=== PATIENT | female | born 1965 | race Caucasian/White ===

== ENCOUNTER 2024-09-08 18:57 | Emergency (ER) | payer OTHER, SELFPAY ==
[2024-09-08 19:08] VITALS: BP 151/94; PULSE 73; RESP 18; TEMP 36.4; O2SAT 97; BMI 24.5
--- NOTE | 2024-09-08 19:09 | ECG_ITS ---
APPROVED REPORT Exam: Resting ECG HR:64 bpm ECG Measurements Heart Rate 64 AXES LA 161 P 63 QRSd 164 QRS 49 QT 428 T -31 QTc 437 Conclusion ELECTRONIC VENTRICULAR PACEMAKER ABNORMAL RHYTHM ECG UNCONFIRMED REPORT Electronically signed by : EDSON GERMAIN, 09/09/2024 06:31:54
--- NOTE | 2024-09-08 19:15 | XR_ITS ---
PROCEDURE INFORMATION: Exam: XR Chest Exam date and time: 09/08/2024 7:50 PM Age: 59 years old Clinical indication: Injury or trauma; Fall; Blunt trauma (contusions or hematomas) TECHNIQUE: Imaging protocol: Radiologic exam of the chest. Views: 1 view. COMPARISON: CT CERVICAL SPINE WO CON 09/08/2024 7:49 PM FINDINGS: Tubes, catheters and devices: Dual lead AICD. Lungs: No acute infiltrates.. Pleural spaces: There is no evidence for pneumothorax. Heart/Mediastinum: The heart size is within normal limits. Bones/joints: Unremarkable. IMPRESSION: 1. Dual lead AICD. 2. No acute infiltrates.. 3. There is no evidence for pneumothorax.
--- NOTE | 2024-09-08 19:15 | CT_ITS ---
PROCEDURE INFORMATION: Exam: CT Head Without Contrast Exam date and time: 09/08/2024 7:44 PM Age: 59 years old Clinical indication: Injury or trauma; Fall; Blunt trauma (contusions or hematomas); Additional info: Fall, head trauma TECHNIQUE: Imaging protocol: Computed tomography of the head without contrast. Radiation optimization: All CT scans at this facility use at least one of these dose optimization techniques: automated exposure control; mA and/or kV adjustment per patient size (includes targeted exams where dose is matched to clinical indication); or iterative reconstruction. COMPARISON: CT HEAD/BRAIN WO CON 09/08/2024 7:44 PM FINDINGS: Brain: Normal. No hemorrhage. Unremarkable white matter. No mass effect. Cerebral ventricles: No ventriculomegaly. Paranasal sinuses: Visualized sinuses are unremarkable. No fluid levels. Mastoid air cells: Visualized mastoid air cells are well aerated. Bones: Unremarkable. No acute fracture. Soft tissues: Unremarkable. IMPRESSION: No acute intracranial abnormality.
--- NOTE | 2024-09-08 19:15 | XR_ITS ---
PROCEDURE INFORMATION: Exam: XR Pelvis Exam date and time: 09/08/2024 7:50 PM Age: 59 years old Clinical indication: Injury or trauma; Fall; Blunt trauma (contusions or hematomas); Bilateral; Pelvic region TECHNIQUE: Imaging protocol: Radiologic exam of the pelvis. Views: 1 or 2 view. COMPARISON: No relevant prior studies available. FINDINGS: Bones/joints: Postop changes right hip arthroplasty partially visualized. No acute fracture. Soft tissues: Unremarkable. IMPRESSION: No evidence for acute fracture.
--- NOTE | 2024-09-08 19:15 | CT_ITS ---
PROCEDURE INFORMATION: Exam: CT Cervical Spine Without Contrast Exam date and time: 09/08/2024 7:49 PM Age: 59 years old Clinical indication: Injury or trauma; Fall; Blunt trauma; Additional info: *fall TECHNIQUE: Imaging protocol: Computed tomography of the cervical spine without contrast. Radiation optimization: All CT scans at this facility use at least one of these dose optimization techniques: automated exposure control; mA and/or kV adjustment per patient size (includes targeted exams where dose is matched to clinical indication); or iterative reconstruction. COMPARISON: CT FACIAL BONES WO CON 09/08/2024 7:47 PM FINDINGS: Bones: No evident fracture. Degenerative changes of the C-spine most pronounced at C4-C5 through C6-C7. Alignment and vertebral body heights are intact. Spinal cord: A large central disc protrusion noted at the C3-C4 level with associated extrusion superior to this level and slightly inferior to this level and severe narrowing of the central canal that measures 4 mm with associated presumed cord compression. Developmental incomplete closure of the posterior arch of C1. Lungs: Lung apices are normal. Soft tissues: Unremarkable. IMPRESSION: 1. A large central disc protrusion noted at the C3-C4 level with associated extrusion superior to this level and slightly inferior to this level and severe narrowing of the central canal that measures 4 mm with associated presumed cord compression. Further assessment with MRI scan of the C-spine may be indicated. 2. Degenerative changes. No acute fracture.
--- NOTE | 2024-09-08 19:19 | HMH.EDGENADL ---
Discharge Plan Disposition Patient Disposition: Left Against Medical Advice Condition: Good Referrals Follow up/Referrals: Abraham Bailey MD [Physician, Ear, Nose, Throat] - See instructions Roselyn Melendez [Primary Care Provider, Medical] - See instructions Armani Dowell MD [Referring, Otolaryngology (ENT)] - See instructions Activity Restrictions/Add. Instructions Additional Instructions/Restrictions: You will need an MRI of your cervical spine to evaluate the spinal cord. There are 2 options in order to receive an MRI, you can follow-up with your primary care provider and they can order an MRI or you can return to the emergency department. If you have any acute or worsening neurologic symptoms such as progression of weakness, worsening strength, decreased sensation or worsening ability to ambulate please return to the emergency department more acutely. For your facial fracture, you will need to see a facial surgeon in clinic. You should eat a soft diet for 1 week you can use Tylenol and ibuprofen as needed for symptom control. Return to the emergency department for any acute or worsening symptoms. Clinical Impressions Clinical Impression: Mandibular fracture, Cervical spinal cord compression Print Language Print Language: Spanish Discharge ED Provider: Debra Belcher General Adult HPI <RIA Wright - Last Filed: 09/08/24 22:19> General Chief complaint: Fall Stated complaint: AO 09/08/24 1800 laceration chin Time Seen by Provider: 09/08/24 19:03 Mode of Arrival: Wheelchair Source of Information: Patient and Spouse Description of Symptoms (Recalled from ER Triage Doc. by RN): pt reports she fell and hit her chin on the floor. denies LOC, but pt states she passed out. hx of [place] and stroke. speech is slurred @ baseline bruising above left eye and abrasion on r knee. on thinner History of Present Illness HPI narrative: 59-year-old female presents to the emergency department with a fall, and laceration on her chin, patient is somewhat of a poor historian, and is accompanied by her , patient is unsure of any LOC, describes what sound like a presyncopal versus syncopal episode where the patient was attempting to get out of a chair, and fell on her face , patient has prior history of TIA/CVA, with residual dysarthria/aphasia, and right-sided deficits, patient does admit to striking head on the left side, planes of right shoulder pain, right knee pain, from her fall, as well as right hip pain, patient [place] any fever chills chest pain shortness of breath nausea vomiting abdominal pain no urinary symptomatology, patient past medical history consistent with hypertension, implantable pacemaker/defibrillator, surgical fixation of the patient's pelvis/hip, hyperlipidemia, patient is on antiplatelet therapy with aspirin, otherwise patient is unsure of her other past medical history, initial triage vitals are unremarkable. Has a history of substance use/abuse. Onset (ago): hour(s) Related Data Allergies Allergy/AdvReac Type Severity Reaction Status Date / Time chocolate Allergy Hives Verified 09/08/24 19:16 diphenhydramine (From Allergy Hives Verified 09/08/24 19:16 Benadryl) latex Allergy Hives Verified 09/08/24 19:16 PFSH <RIA Wright - Last Filed: 09/08/24 22:19> [facility] Disclaimer: The information contained in this section may have been updated after the patient was seen, as this information can be updated by other users. Social History (Updated 09/08/24 @ 22:19 by RIA Wright) Smoking Status: Never smoker alcohol intake: never current occupational status: other Travel in the last 8 weeks?: None <RIA Wright - Last Filed: 09/08/24 22:19> ROS Obtained: Yes All systems reviewed & no additional complaints except as documented Physical Exam <RIA Wright - Last Filed: 09/08/24 22:19> General General appearance: alert and in no apparent distress Head Head exam: atraumatic and normocephalic Eye Eye exam: Present PERRL and EOMI ENT ENT exam: Present mucous membranes moist Neck Neck exam: Present normal inspection Chest Chest inspection: Present normal inspection and symmetric chest wall rise Respiratory Respiratory exam: Present normal lung sounds bilaterally; Absent respiratory distress Cardiovascular Cardiovascular exam: Present regular rate and normal rhythm Abdominal Exam Abdominal exam: Present soft; Absent tenderness, guarding, rebound or rigidity Extremities Exam Extremities exam: Present normal inspection, tenderness and other (Range of motion of the right shoulder with tenderness over the anterior shoulder joint, tenderness palpation over the right knee, with ecchymosis and bruising, otherwise neurovasc intact, patient moves extremities to command.); Absent full ROM Back Exam Back exam: Present normal inspection and full ROM; Absent tenderness Neurological Exam Neurological exam: Present alert, oriented X3 and other (Patient has some baseline dysarthria/aphasia previous TIA/CVAs, appears to be at baseline according to family at the bedside, with some very minor residual right sided weakness, 4-5 throughout, otherwise no other focal neurological deficits present) Psychiatric Psychiatric exam: Present normal affect Skin Skin exam: Present warm, dry and other (Small 1 cm laceration over the patient's chin, active bleeding, ecchymosis/bruising over the right knee,) Medical Decision Making <RIA Wright - Last Filed: 09/08/24 22:19> Medical Records Medical records reviewed: Yes I reviewed the patient's medical records. Screening: Per USPSTF and CDC recommendations, given the prevalence of disease in our region, it is our hospital?s policy to screen for HIV and viral Hepatitis for all patients aged 18 and over and those with ongoing risk factors. James Inquiry Pt receiving controlled substance: No James was queried for this patient: No Vital Signs: 09/08/24 19:08 09/09/24 00:25 Temperature 97.6 F 98.2 F Temperature Source Oral Oral Pulse Rate 69 Pulse Rate [Right] 73 Respiratory Rate 18 17 Blood Pressure 139/87 Blood Pressure [Right Arm] 151/94 H Blood Pressure Mean [Right Arm] 113 Blood Pressure Source Automatic Cuff Blood Pressure Position Sitting 02 Sat by Pulse Oximetry 97 Oxygen Delivery Method Room Air Room Air Lab Data Lab results reviewed: Yes I reviewed the patient's lab results. Lab Results 09/08/24 19:30: WBC 6.6, RBC 4.89, Hgb 13.9, Hct 42.8, MCV 87.5, MCH 28.4, MCHC 32.5, RDW 13.8, Plt Count 217, MPV 11.0 H, Neut % (Auto) 56.3, Lymph % (Auto) 32.3, Ripley % (Auto) 8.9, Eos % (Auto) 1.8, Baso % (Auto) 0.5, Neut # (Auto) 3.7, Lymph # (Auto) 2.1, Ripley # (Auto) 0.6, Eos # (Auto) 0.1, Baso # (Auto) 0.0, Sodium 138, Potassium 3.9, Chloride 103, Carbon Dioxide 29, Anion Gap 9.9, BUN 20 H, Creatinine 0.60, Estimated Creat Clear 94, Estimated GFR 102, Est GFR ( Amer) 124, Glucose 101 H, Calcium 9.3, Magnesium 2.1, Total Bilirubin 0.9, AST 56 H, ALT 37, Alkaline Phosphatase 72, Troponin I < 0.01, NT-Pro-B Natriuret Pep 103, Total Protein 7.3, Albumin 4.3, Globulin 3.0, Albumin/Globulin Ratio 1.4 09/08/24 22:05: Troponin I < 0.01 09/08/24 19:30 09/08/24 19:30 Orders (Tests/Meds): ED MEDICATIONS Discontinued Medications Generic Name Dose Route Start Last Admin Trade Name Freq PRN Reason Stop Dose Admin Bacitracin 1 each 09/09/24 00:06 Bacitracin Oint 0.9gm Udp TP 09/09/24 00:07 ONCE ONE Lidocaine HCl 10 ml 09/08/24 19:56 09/08/24 20:11 Lidocaine 1% 5ml Pf Vial IJ 09/08/24 19:57 10 ml ONCE ONE Administration Tetanus/Reduced Diphtheria/Acell Pertussis 0.5 ml 09/08/24 19:55 09/08/24 20:12 Tet/Diphth/Pert-Adult 0.5ml Syringe IM 09/08/24 19:56 0.5 ml .ONCE ONE Administration ORDERS Category Date Time Status CT cervical spine wo con Stat Cat Scan 09/08/24 19:[address] facial bones wo con Stat Cat Scan 09/08/24 19:[address] head/brain wo con Stat Cat Scan 09/08/24 19:15 Completed Pelvis XR 1-2 views [XR pelvis 1-2V] Stat Exams 09/08/24 19:15 Completed XR chest portable Stat Exams 09/08/24 19:15 Completed XR knee RT 3V Stat Exams 09/08/24 19:25 Completed XR shoulder RT min 2V Stat Exams 09/08/24 19:25 Completed Complete Blood Count Auto Diff Stat Lab 09/08/24 19:30 Completed Comprehensive Metabolic Panel Stat Lab 09/08/24 19:30 Completed Magnesium Stat Lab 09/08/24 19:30 Completed NT Pro Brain Natriuretic Pep. Stat Lab 09/08/24 19:30 Completed Troponin I Q3H Lab 09/08/24 22:05 Completed Troponin I Stat Lab 09/08/24 19:30 Completed Medical Decision Narrative: 59-year-old female presents to the emergency department with a fall versus syncopal episode, differential diagnosis include but not limited to, traumatic SAH, acute SDH, postconcussive syndrome, facial bone fracture, superficial contusions, since, right shoulder sprain, shoulder fracture, knee sprain, fracture, laceration, cardiac arrhythmia, electrolyte disturbance among others. I discussed patient case with the attending physician Dr.Mack solorzano and examined the patient as well. Will obtain basic laboratory studies, magnesium level proBNP, troponin, EKG, CT cervical spine without contrast, CT facial bones without contrast, CT head without contrast, chest ray, right knee x-ray, pelvic x-ray, and right shoulder x-ray, will update patient's tetanus prophylaxis here in the emergency department as patient states has been greater than 5 years since last tetanus Reviewed the patient's EKG at 1919, electronic ventricular pacemaker is present, 64 bpm, NV interval within normals, QT interval within normal limits there is no STEMI. CBC unremarkable CMP is notable for minimal BUN elevation at 20, minimal AST elevation 56. Troponin is within normal limits at less than 0.01, proBNP is within normal limits\ I along with my physician assistant teacher student, performed laceration repair at the bedside, wound was copiously irrigated, was cleaned with normal saline and Hibiclens solution, approximately 8 mL of 1% lidocaine, and 2 mL of 1% lidocaine with epi, was applied using local analgesia technique, patient tolerated well, utilizing 5-0 with a total of 7 nylon sutures patient's wound was closed, wound margins/edges were revitalize, patient tolerated procedure well, no apparent complications, hemostasis achieved. I reviewed the patient's right knee x-ray along with corresponding radiologic report, no evidence of acute fracture, partially visualized lateral plate and screws within the mid and distal femur I reviewed the patient's right shoulder x-ray along the corresponding radiologic report, no acute findings. I reviewed the patient's chest x-ray along the corresponding radiologic report, dual-lead AICD no acute infiltrates there is no evidence of pneumothorax. 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 Reviewed the patient's CT head without contrast along the corresponding radiologic report, no acute intracranial abnormality. Reviewed the patient's CT cervical spine without contrast on the corresponding radiologic report, there is a large protrusion noted at C3-C4 level with associated extrusion superior to the level and slightly inferior to this level and severe narrowing of the central canal that measures 4 mm with associated presumed cord compression, further assessment with MRI scan of the C-spine may be indicated, degenerative changes no acute fracture. I discussed over the phone with the patient's daughter Anastasia, at approximately 9:55 PM, plan will be for potential [facility] consultation for facial fracture and signs concerning for spinal cord compression based on CT cervical spine results. After discussing with the daughter, via phone, also obtained additional medical history, patient had prior PFO, that was closed, this was the cause of the patient's cryptogenic strokes, patient not on anticoagulant therapies, only takes a daily aspirin, other past medical history consistent with CHF. Also of note, daughter over the phone states the patient has been having blackout episodes , and a balance/gait disturbance that have been going on for the last several months. Slated to have a neurology consultation in the upcoming months. I discussed this patient's case with Dr. Belcher at shift change, she will be assuming the patient's care/workup, disposition is pending in emergency [place] consultation versus transfer based on the patient's imaging studies as stated above. <Debra Belcher, DO - Last Filed: 09/10/24 17:40> Vital Signs: 09/08/24 19:08 09/09/24 00:25 Temperature 97.6 F 98.2 F Temperature Source Oral Oral Pulse Rate 69 Pulse Rate [Right] 73 Respiratory Rate 18 17 Blood Pressure 139/87 Blood Pressure [Right Arm] 151/94 H Blood Pressure Mean [Right Arm] 113 Blood Pressure Source Automatic Cuff Blood Pressure Position Sitting 02 Sat by Pulse Oximetry 97 Oxygen Delivery Method Room Air Room Air Lab Data Lab Results 09/08/24 19:30: WBC 6.6, RBC 4.89, Hgb 13.9, Hct 42.8, MCV 87.5, MCH 28.4, MCHC 32.5, RDW 13.8, Plt Count 217, MPV 11.0 H, Neut % (Auto) 56.3, Lymph % (Auto) 32.3, Ripley % (Auto) 8.9, Eos % (Auto) 1.8, Baso % (Auto) 0.5, Neut # (Auto) 3.7, Lymph # (Auto) 2.1, Ripley # (Auto) 0.6, Eos # (Auto) 0.1, Baso # (Auto) 0.0, Sodium 138, Potassium 3.9, Chloride 103, Carbon Dioxide 29, Anion Gap 9.9, BUN 20 H, Creatinine 0.60, Estimated Creat Clear 94, Estimated GFR 102, Est GFR ( Amer) 124, Glucose 101 H, Calcium 9.3, Magnesium 2.1, Total Bilirubin 0.9, AST 56 H, ALT 37, Alkaline Phosphatase 72, Troponin I < 0.01, NT-Pro-B Natriuret Pep 103, Total Protein 7.3, Albumin 4.3, Globulin 3.0, Albumin/Globulin Ratio 1.4 09/08/24 22:05: Troponin I < 0.01 Orders (Tests/Meds): ED MEDICATIONS Discontinued Medications Generic Name Dose Route Start Last Admin Trade Name Freq PRN Reason Stop Dose Admin Bacitracin 1 each 09/09/24 00:06 Bacitracin Oint 0.9gm Udp TP 09/09/24 00:07 ONCE ONE Lidocaine HCl 10 ml 09/08/24 19:56 09/08/24 20:11 Lidocaine 1% 5ml Pf Vial IJ 09/08/24 19:57 10 ml ONCE ONE Administration Tetanus/Reduced Diphtheria/Acell Pertussis 0.5 ml 09/08/24 19:55 09/08/24 20:12 Tet/Diphth/Pert-Adult 0.5ml Syringe IM 09/08/24 19:56 0.5 ml .ONCE ONE Administration ORDERS Category Date Time Status CT cervical spine wo con Stat Cat Scan 09/08/24 19:[address] facial bones wo con Stat Cat Scan 09/08/24 19:[address] head/brain wo con Stat Cat Scan 09/08/24 19:15 Completed Pelvis XR 1-2 views [XR pelvis 1-2V] Stat Exams 09/08/24 19:15 Completed XR chest portable Stat Exams 09/08/24 19:15 Completed XR knee RT 3V Stat Exams 09/08/24 19:25 Completed XR shoulder RT min 2V Stat Exams 09/08/24 19:25 Completed Complete Blood Count Auto Diff Stat Lab 09/08/24 19:30 Completed Comprehensive Metabolic Panel Stat Lab 09/08/24 19:30 Completed Magnesium Stat Lab 09/08/24 19:30 Completed NT Pro Brain Natriuretic Pep. Stat Lab 09/08/24 19:30 Completed Troponin I Q3H Lab 09/08/24 22:05 Completed Troponin I Stat Lab 09/08/24 19:30 Completed Medical Decision Narrative: 59-year-old female presents to the emergency department with a fall versus syncopal episode, differential diagnosis include but not limited to, traumatic SAH, acute SDH, postconcussive syndrome, facial bone fracture, superficial contusions, since, right shoulder sprain, shoulder fracture, knee sprain, fracture, laceration, cardiac arrhythmia, electrolyte disturbance among others. I discussed patient case with the attending physician Dr.Mack solorzano and examined the patient as well. Will obtain basic laboratory studies, magnesium level proBNP, troponin, EKG, CT cervical spine without contrast, CT facial bones without contrast, CT head without contrast, chest ray, right knee x-ray, pelvic x-ray, and right shoulder x-ray, will update patient's tetanus prophylaxis here in the emergency department as patient states has been greater than 5 years since last tetanus Reviewed the patient's EKG at 1919, electronic ventricular pacemaker is present, 64 bpm, NV interval within normals, QT interval within normal limits there is no STEMI. CBC unremarkable CMP is notable for minimal BUN elevation at 20, minimal AST elevation 56. Troponin is within normal limits at less than 0.01, proBNP is within normal limits\ I along with my physician assistant teacher student, performed laceration repair at the bedside, wound was copiously irrigated, was cleaned with normal saline and Hibiclens solution, approximately 8 mL of 1% lidocaine, and 2 mL of 1% lidocaine with epi, was applied using local analgesia technique, patient tolerated well, utilizing 5-0 with a total of 7 nylon sutures patient's wound was closed, wound margins/edges were revitalize, patient tolerated procedure well, no apparent complications, hemostasis achieved. I reviewed the patient's right knee x-ray along with corresponding radiologic report, no evidence of acute fracture, partially visualized lateral plate and screws within the mid and distal femur I reviewed the patient's right shoulder x-ray along the corresponding radiologic report, no acute findings. I reviewed the patient's chest x-ray along the corresponding radiologic report, dual-lead AICD no acute infiltrates there is no evidence of pneumothorax. 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 Reviewed the patient's CT head without contrast along the corresponding radiologic report, no acute intracranial abnormality. Reviewed the patient's CT cervical spine without contrast on the corresponding radiologic report, there is a large protrusion noted at C3-C4 level with associated extrusion superior to the level and slightly inferior to this level and severe narrowing of the central canal that measures 4 mm with associated presumed cord compression, further assessment with MRI scan of the C-spine may be indicated, degenerative changes no acute fracture. I discussed over the phone with the patient's daughter Anastasia, at approximately 9:55 PM, plan will be for potential [facility] consultation for facial fracture and signs concerning for spinal cord compression based on CT cervical spine results. After discussing with the daughter, via phone, also obtained additional medical history, patient had prior PFO, that was closed, this was the cause of the patient's cryptogenic strokes, patient not on anticoagulant therapies, only takes a daily aspirin, other past medical history consistent with CHF. Also of note, daughter over the phone states the patient has been having blackout episodes , and a balance/gait disturbance that have been going on for the last several months. Slated to have a neurology consultation in the upcoming months. I discussed this patient's case with Dr. Belcher at [facility], she will be assuming the patient's care/workup, disposition is pending in emergency [place] consultation versus transfer based on the patient's imaging studies as stated above. Debra Belcher, DO I took over the care of this patient initially pending consult and evaluation by [facility]. After discussion with [facility], they did accept patient for transfer given that we are unable to obtain MRIs over the weekend. However after further discussion with the patient, she did not wish to transfer to [facility] at this time for MRIs. I did discuss with the patient my concern with given her compression noted on her CT scan and patient understood the risks of not obtaining MRI at this time. I discussed with the patient other options including outpatient MRI versus returning to the emergency department to obtain MRIs during the week today. I had a lengthy discussion with the patient that if she were to have any worsening neurologic symptoms including worsening numbness, weakness, difficulties urinating or bowel incontinence that she needed to return to the emergency department immediately. In regards to the patient's mandibular fracture, [facility] was consulted and they recommended outpatient management, patient was instructed to eat a soft diet over the next week. Patient was otherwise discharged AGAINST MEDICAL ADVICE at this time. Procedures <RIA Wright - Last Filed: 09/08/24 22:19> Laceration Laceration 1: Site: face Size (cm): 2 Description: irregular Depth: simple, single layer Local Anesthetic: lidocaine 1% and with epi Amount of anesthesia used (mL): 10 Pre-repair: irrigated extensively and deep structures intact Skin layer closed with: nylon Size (cm): 5-0 Number of sutures: 7 Technique: simple, interrupted Critical Care <RIA Wright - Last Filed: 09/08/24 22:19> Critical Care Time Critical Care Time: No
--- NOTE | 2024-09-08 19:24 | PC.NURSE ---
Pt chin lac cleansed, wet gauze applied and curlex for pressure, Dr Belcher at bedside.
--- NOTE | 2024-09-08 19:25 | XR_ITS ---
PROCEDURE INFORMATION: Exam: XR Right Knee Exam date and time: 09/08/2024 7:50 PM Age: 59 years old Clinical indication: Injury or trauma; Fall; Blunt trauma; Knee; Right; Additional info: Fall, right knee pain TECHNIQUE: Imaging protocol: Radiologic exam of the right knee. Views: 3 views. COMPARISON: No relevant prior studies available. FINDINGS: Bones/joints: No acute fracture. Partially visualized lateral plate and screws within the mid and distal femur. Soft tissues: Normal. IMPRESSION: 1. No evidence for acute fracture. 2. Partially visualized lateral plate and screws within the mid and distal femur.
--- NOTE | 2024-09-08 19:25 | CT_ITS ---
PROCEDURE INFORMATION: Exam: CT Maxillofacial Without Contrast Exam date and time: 09/08/2024 7:47 PM Age: 59 years old Clinical indication: Injury or trauma; Blunt trauma (contusions or hematomas); Other: Fall, facial trauma TECHNIQUE: Imaging protocol: Computed tomography of the face without contrast. Radiation optimization: All CT scans at this facility use at least one of these dose optimization techniques: automated exposure control; mA and/or kV adjustment per patient size (includes targeted exams where dose is matched to clinical indication); or iterative reconstruction. COMPARISON: CT HEAD/BRAIN WO CON 09/08/2024 7:44 PM FINDINGS: Paranasal sinuses: No air-fluid levels. Orbital cavities: Orbits are normal. Globes are unremarkable. Salivary glands: Multilobulated fat density lesion within the right parotid gland measuring 4.0 x 2.0 x 2.0 cm. Mild thin internal septations are noted. Bones: Comminuted fractures through the left mandibular condyle with intra-articular extension to the TMJ with mild lateral displacement of the proximal lateral fracture component and minimal medial angulation of the proximal medial fracture component. No other mandibular fracture seen. No other facial fracture seen. Soft tissues: Unremarkable. IMPRESSION: 1. Comminuted fracture of the left mandibular condyle with intra-articular extension. 2. 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 Advise clinical assessment and follow-up.
--- NOTE | 2024-09-08 19:25 | XR_ITS ---
PROCEDURE INFORMATION: Exam: XR Right Shoulder Exam date and time: 09/08/2024 7:50 PM Age: 59 years old Clinical indication: Injury or trauma; Fall; Blunt trauma (contusions or hematomas); Shoulder; Right; Additional info: Fall with right shoulder pain TECHNIQUE: Imaging protocol: Radiologic exam of the right shoulder. Views: 2 or more views. COMPARISON: CR XR SHOULDER RT MIN 2V 09/08/2024 7:50 PM FINDINGS: Bones/joints: Normal. Soft tissues: Normal. IMPRESSION: No acute findings.
--- OUTSIDE RECORDS SUMMARY | 2024-09-08 19:33 | XMS_ITS | Encounter Summary ---
Author Organization [place] [address] Care Team Providers Care Tactical Air Control Party Name Role Phone Berny Daley MD Unavailable [phone] Kylie Kelly Unavailable Sujit Vazquez MD Unavailable [phone] Payton Flynn RN Unavailable Unavailabl Roselyn Colorado MD Primary Care Provider [phone] Margy Hwang RN Unavailable Unavail able Encounter Details Date Type Department Care Team (Late st Contact Info) Description 01/10/2014 Orders Only [facility] [address] [place] [address] Berny Daley MD [address] [place] [address] Social History Tobacco Use Types Packs/Day Years Used Date Smoking Tobacco: Former Cigarettes Smokeless Tobacco: Never Comments:quit 1993 Alcohol Use Standard Drinks/Week Comments No 0 (1 standard drink = 0.6 oz pur e alcohol) Comments No Sex and Gender Information Value Date Recorded Sex Assigned at Not on file Legal Sex Female 12:36 AM EDT Gender Identity Not on file Sexual Orientation Not on file documented as of this encounter Functional Status * Cognitive and Functional Status Question Answer Date of Assessment Author Is the person deaf or does he/she have serious difficulty hearing? No 01/11/2014 11:45 AM Shantel Montgomery RN Is the person blind or does he/she have serious difficulty seeing even when wearing glasses? No 01/11/2014 11:45 AM Shantel Montgomery RN Does this person have seriou s difficulty walking or climbing stairs? No 01/11/2014 11:45 AM Shantel Montgomery RN Does this person have difficulty dressing or bathing? Yes 01/11/2014 11:45 AM Shantel Montgomery RN documented as of this encounter Mental Status * Cognitive and Functional Status Question Answer Entry Date Author Because of a physical, menta l or emotional condition, does this person have difficulty doing errands alone such as visiting a doctor's office or shopping? No 01/11/2014 11:45 AM Shantel Montgomery RN Because of a physical, menta l or emotional condition, does this person have serious difficulty concentrating, remembering or making decisions? No 01/11/2014 11:45 AM Shantel Montgomery RN documented in this encounter Progress Notes * Cammie Sommer APRN - 01/11/2014 3:21 PM [email or web address] Note: Results normal documented in this encounter Plan of Treatment Upcoming Encounters Date Type Department Care Team (Late st Contact Info) Description 10/11/2024 10:50 AM EDT Office Visit [facility] [address] [address] Berny Daley MD [address] [place] [address] 10/11/2024 11:00 AM EDT Office Visit [facility] [address] [address] documented as of this encounter Procedures Procedure Name Priority Date/Time Associated Diagnosis Comments PACEART REPORT Routine 01/10/2014 2:52 PM EST documented in this encounter Results * PACEART REPORT (01/10/2014 2:52 PM EST) 01/10/2014 2:52 PM EST Berny Daley MD [facility] CARDIAC CATH ORDERABLE S Final Result [facility] [address] [place] [address] documented in this encounter Visit Diagnoses Not on filedocumented in this encounter Additional Health Concerns Infection Onset Date Last Indicated Resolved Time R/O COVID-19 03/25/2021 03/25/2021 03/25/2021 7:15 PM EST documented as of this encounter Care Teams Tactical Air Control Party Relationship Specialty Start Date End Date Roselyn Melendez MD [address] [place] [phone] PCP - General Family Medicine 07/09/20 Berny Daley MD [address] [place] [address] Internal Medicine-Cardiovascular Disease 02/04/14 Kylie Kelly [address] [place] [address] Health Advocate Registered Nurse 03/08/14 07/29/14 Sujit Vazquez MD [address] [facility] [address] Consulting Physician Internal Medicine - Clinical Cardiac Electrophysiology 07/23/16 Payton Flynn, RN Electric Train Driver Registered Nurse 11/28/18 11/28/18 Margy Hwang RN Electric Train Driver Registered Nurse 04/10/21 04/10/21 documented as of this encounter
--- OUTSIDE RECORDS SUMMARY | 2024-09-08 19:33 | XMS_ITS | Encounter Summary ---
Author Organization [place] [address] Care Team Providers Care Flyer Builder Name Role Phone Berny Daley MD Unavailable [phone] Sujit Vazquez MD Unavailable Payton Flynn RN Unavailable Unavailabl e Roselyn Melendez MD Primary Care Provider [phone] Margy Hwang RN Unavailable Unavail able Encounter Details Date Type Department Care Team (Late st Contact Info) Description 07/08/2016 Orders Only [facility] [address] [facility] [address] [place] [address] Sujit Vazquez MD [address] [place] [address] Social History Tobacco Use Types Packs/Day Years Used Date Smoking Tobacco: Former Cigarettes 1.5 14 0 07/30/1979 - 07/29/1993 Smokeless Tobacco: Never Comments:quit 1993 Alcohol Use Standard Drinks/Week Comments No 0 (1 standard drink = 0.6 oz pur e alcohol) Comments No Sex and Gender Information Value Date Recorded Sex Assigned at Not on file Legal Sex Female 12:36 AM EDT Gender Identity Not on file Sexual Orientation Not on file documented as of this encounter Functional Status * Is the person deaf or does he/she have serious difficulty hearing? Answer Date of Assessment Author No 01/11/2014 11:45 AM Yonny Montgomery RN * Is the person blind or does he/she have serious difficulty seeing even when wearing glasses? Answer Date of Assessment Author No 01/11/2014 11:45 AM Yonny Montgomery RN * Does this person have serious difficulty walking or climbing stairs? Answer Date of Assessment Author No 01/11/2014 11:45 AM Yonny Montgomery RN * Does this person have difficulty dressing or bathing? Answer Date of Assessment Author Yes 01/11/2014 11:45 AM Yonny Montgomery RN * Because of a physical, mental or emotional condition, does this person have difficulty doing errands alone such as visiting a doctor's office or shopping? Answer Date of Assessment Author No 01/11/2014 11:45 AM Yonny Montgomery RN documented as of this encounter Mental Status * Because of a physical, mental or emotional condition, does this person have serious difficulty concentrating, remembering or making decisions? Answer Entry Date Author No 01/11/2014 11:45 AM Yonny Montgomery RN documented in this encounter Plan of Treatment Upcoming Encounters Date Type Department Care Team (Late st Contact Info) Description 10/11/2024 10:50 AM EDT [place] [address] Berny Daley MD [address] [place] [address] 10/11/2024 11:00 AM EDT Office Visit [facility] [address] [id number] documented as of this encounter Goals Goal Patient Goal Type Associated Problems Recent Progress Patient-Stated? Author Blood Pressure < 140/90 Blood Pressure 130/78(2024 10:44 AM EST) Jennifer Fofana RMA Maintain a healthy diet, exercise regularly and maintain an ideal body weight General No Jennifer Vargas RMA Stay Tobacco Free Lifestyle No Jennifer Vargas RMA documented as of this encounter Procedures Procedure Name Priority Date/Time Associated Diagnosis Comments PACEART REPORT Routine 07/08/2016 5:23 PM EDT documented in this encounter Results * PACEART REPORT (07/08/2016 5:23 PM EDT) 07/08/2016 5:23 PM EDT Narrative [facility] - 07/08/2016 7:36 PM EDT implant report us Sujit Vazquez MD [facility] CARDI[facility] CATH ORDERAB LES Final Result [facility] [address] [place] [address] documented in this encounter Visit Diagnoses Not on filedocumented in this encounter Additional Health Concerns Infection Onset Date Last Indicated Resolved Time R/O COVID-19 03/25/2021 03/25/2021 03/25/2021 7:15 PM EST documented as of this encounter Care Teams Flyer Builder Relationship Specialty Start Date End Date Roselyn Melendez MD [address] [place] [phone] PCP - General Family Medicine 07/09/20 Berny Daley MD [address] [place] [address] Internal Medicine-Cardiovascular Disease 02/04/14 Sujit Vazquez MD [address] [place] [address] Consulting Physician Internal Medicine - Clinical Cardiac Electrophysiology 07/23/16 Payton Flynn, RN Newspaper Journalist Registered Nurse 11/28/18 11/28/18 Margy Hwang RN Newspaper Journalist Registered Nurse 04/10/21 04/10/21 documented as of this encounter
--- OUTSIDE RECORDS SUMMARY | 2024-09-08 19:33 | XMS_ITS | Encounter Summary ---
Author Organization [place] [address] Care Team Providers Care Business Continuity Analyst Name Role Phone Berny Daley MD Unavailable [phone] yKlie Kelly Unavailable Sujit Vazquez MD Unavailable [phone] Payton Flynn RN Unavailable Unavailabl Roselyn [place] MD Primary Care Provider [phone] Margy Hwang RN Unavailable Unavail able Encounter Details Date Type Department Care Team (Late st Contact Info) Description 07/30/2013 Orders Only [facility] [address] [place] [address] Berny Daley MD [address] [place] [address] Social History Tobacco Use Types Packs/Day Years Used Date Smoking Tobacco: Former Smokeless Tobacco: Never Alcohol Use Standard Drinks/Week Comments No 0 (1 standard drink = 0.6 oz pur e alcohol) Comments No Sex and Gender Information Value Date Recorded Sex Assigned at Not on file Legal Sex Female 12:36 AM EDT Gender Identity Not on file Sexual Orientation Not on file documented as of this encounter Plan of Treatment Upcoming Encounters Date Type Department Care Team (Late st Contact Info) Description 10/11/2024 10:50 AM EDT Office Visit [facility] [address] [address] Berny Daley MD [address] [place] [address] 10/11/2024 11:00 AM EDT Office Visit [facility] [address] [address] documented as of this encounter Procedures Procedure Name Priority Date/Time Associated Diagnosis Comments FUND CONTROLLER PROCEDURE LOG Routine 07/30/2013 12:00 AM EDT documented in this encounter Results * FUND CONTROLLER PROCEDURE LOG (07/30/2013 12:00 AM EDT) us Berny Daley MD [facility] CARDIAC CATH ORDERABLE S Final Result [facility] [address] [place] [address] documented in this encounter Visit Diagnoses Not on filedocumented in this encounter Additional Health Concerns Infection Onset Date Last Indicated Resolved Time R/O COVID-19 03/25/2021 03/25/2021 03/25/2021 7:15 PM EST documented as of this encounter Care Teams Business Continuity Analyst Relationship Specialty Start Date End Date Roselyn Melendez MD [address] [place] [phone] PCP - General Family Medicine 07/09/20 Berny Daley MD [address] [place] [address] Internal Medicine-Cardiovascular Disease 02/04/14 Kylie Kelly [address] [place] [address] Health Advocate Registered Nurse 03/08/14 07/29/14 Sujit Vazquez MD [address] [place] [address] [place] [address] Consulting Physician Internal Medicine - Clinical Cardiac Electrophysiology 07/23/16 Payton Flynn, RN Extension Clerk Registered Nurse 11/28/18 11/28/18 Margy Hwang RN Extension Clerk Registered Nurse 04/10/21 04/10/21 documented as of this encounter
--- OUTSIDE RECORDS SUMMARY | 2024-09-08 19:33 | XMS_ITS | Encounter Summary ---
Author Organization [place] [address] Care Team Providers Care Relay Repairer Name Role Phone Berny Daley MD Unavailable [phone] Sujit Vazquez MD Unavailable [phone] Roselyn Melendez MD Primary Care Provider [phone] Reason for Visit * Reason Comments Medication Refill Encounter Details Date Type Department Care Team (Late st Contact Info) Description 07/16/2024 Refill [facility] [address] [address] Berny Daley MD [address] [place], [place] [address] Medication Refill Social History Tobacco Use Types Packs/Day Years Used Date Smoking Tobacco: Former Cigarettes 1.5 15 0 02/21/1979 - 02/20/1994 Smokeless Tobacco: Never Alcohol Use Standard Drinks/Week Comments No 0 (1 standard drink = 0.6 oz pur e alcohol) Overall Financial Resource Strain (CARDIA) Answe r Date Recorded How hard is it for you to pa y for the very basics like food, housing, medical care, and heating? Somewhat hard 03/25/2021 PHQ-2 Answer Date Recorded PHQ-2 Total Score 0 11/24/2021 [facility] - Occupational Stress Questionnaire Answer Date Recorded Do you feel stress - tense, restless, nervous, or anxious, or unable to sleep at night because your mind is troubled all the time - these days? Not at all 04/10/2021 Exercise Vital Sign Answer Date Recorde d On average, how many days pe r week do you engage in moderate to strenuous exercise (like a brisk walk)? 0 days 04/10/2021 On average, how many minutes do you engage in exercise at this level? 0 min 04/10/2021 Hunger Vital Sign Answer Date Recorded Within the past 12 months, y ou worried that your food would run out before you got the money to buy more. Never true 03/25/19 22 Within the past 12 months, t he food you bought just didn't last and you didn't have money to get more. Never true 03/25/2021 PRAPARE - Transportation Answer Date Re corded In the past 12 months, has l ack of transportation kept you from medical appointments or from getting medications? No 03/2021 In the past 12 months, has l ack of transportation kept you from meetings, work, or from getting things needed for daily living? No 03/25/2021 Comments No Sex and Gender Information Value Date Recorded Sex Assigned at Not on file Legal Sex Female 12:36 AM EDT Gender Identity Not on file Sexual Orientation Not on file documented as of this encounter Functional Status * Is the person deaf or does he/she have serious difficulty hearing? Answer Date of Assessment Author No 04/09/2021 10:18 AM Дмитрий Bourgeois, RN * Is the person blind or does he/she have serious difficulty seeing even when wearing glasses? Answer Date of Assessment Author No 04/09/2021 10:18 AM Дмитрий Bourgeois, RN * Does this person have serious difficulty walking or climbing stairs? Answer Date of Assessment Author Yes 04/09/2021 10:18 AM Дмитрий Bourgeois, RN * Does this person have difficulty dressing or bathing? Answer Date of Assessment Author Yes 04/09/2021 10:18 AM Дмитрий Bourgeois RN * Because of a physical, mental or emotional condition, does this person have difficulty doing errands alone such as visiting a doctor's office or shopping? Answer Date of Assessment Author Yes 04/09/2021 10:18 AM Дмитрий Bourgeois RN documented as of this encounter Mental Status * Because of a physical, mental or emotional condition, does this person have serious difficulty concentrating, remembering or making decisions? Answer Entry Date Author No 04/09/2021 10:18 AM Дмитрий Bourgeois RN documented in this encounter Ordered Prescriptions Prescription Sig Dispense Quantity Refills Last Filled Start Date End Date potassium chloride SA (KLOR-CON M) 10 mEq Oral Tab Sust.Rel. Particle/CrystalInd ications:Chronic systolic CHF (congestive heart failure), NYHA class 3 (HCC) TAKE 1 TABLET BY MOUTH EVERY DAY 90 Tablet 3 07/17/2024 documented in this encounter Plan of Treatment Upcoming Encounters Date Type Department Care Team (Late st Contact Info) Description 10/11/2024 10:50 AM EDT Office Visit [facility] [address] [address] Berny Daley MD [address] [place] [address] 10/11/2024 11:00 AM EDT Office Visit [facility] [address] [address] documented as of this encounter Goals Goal Patient Goal Type Associated Problems Recent Progress Patient-Stated? Author Blood Pressure < 140/90 Blood Pressure 130/78(2024 10:44 AM EST) No Jennifer Vargas RMA Maintain a healthy diet, exercise regularly and maintain an ideal body weight General Jennifer Fofana RMA Stay Tobacco Free Lifestyle Jennifer Fofana RMA documented as of this encounter Visit Diagnoses Diagnosis Chronic systolic CHF (congestive heart failure), NYHA class 3 (HCC)- Primary documented in this encounter Discontinued Medications Medication Sig Discontinue Reason Start Date End Da te potassium chloride SA (KLOR-CON M) 10 mEq Oral Tab Sust.Rel. Particle/Crystal TAKE 1 TABLET BY MOUTH EVERY DAY 04/20/2024 07/17/2024 documented as of this encounter Care Teams Relay Repairer Relationship Specialty Start Date End Date Roselyn Melendez MD [address] [place] [address] [place] [phone] PCP - General Family Medicine 07/09/20 Berny Daley MD [address] [facility] [address] Internal Medicine-Cardiovascular Disease 02/04/14 Sujit Vazquez MD [address] [place] [address] [place] [address] Consulting Physician Internal Medicine - Clinical Cardiac Electrophysiology 07/23/16 documented as of this encounter
--- OUTSIDE RECORDS SUMMARY | 2024-09-08 19:33 | XMS_ITS | Clinical Summary ---
Author Organization [facility] Address [address] [place] [phone] Phone Care Team Providers Care Betting Agency Counter Clerk Name Role Phone Berny Daley MD Unavailable [phone] Sujit Vazquez MD Unavailable [phone] Roselyn Melendez MD Primary Care Provider [phone] Allergies Active Allergy Reactions Criticality Noted Date Comments Diphenhydramine Hcl Hives,Swelling Medium 01/09/2014 Patient states however that she has no issues with Benadryl Topical Chocolate Flavor Hives Medium 05/30/2015 Hydrocodone-Acetaminophen Hives,Itching Medium 014 Tolerated oxycodone (03/27-04/09 inpatient) Latex Hives Medium 07/09/2013 Medications BIOTIN ORALIndications:[facility] history of sudden cardiac (SCD),LBBB (left bundle branch block),Hypercholes teremia,Chronic systolic CHF (congestive heart failure), NYHA class 3 (HCC),Nonischemic cardiomyopathy (HCC),S/P coronary angiogram,Chest pressure,AICD (automatic cardioverter/defib rillator) present Take 1 Tab by mouth nightly. Active Cholecalciferol, Vitamin D3, 25 mcg (1,000 unit) Oral Capsule Take 1 Tab by mouth daily. Active cetirizine (ZYRTEC) 10 mg Oral Tablet Take 10 mg by mouth as needed. Active diclofenac (VOLTAREN) 1 % Top Gel Apply 4 g topically 3 times daily as needed. 400 g 2 Active Melatonin 5 mg Oral Capsule Take by mouth. Active UNABLE TO FIND OTC allergy eye drops Active aspirin 325 mg Oral Tablet, Delayed Release (E.C.) TAKE 1 TABLET BY MOUTH EVERY DAY 100 Tablet 3 3 Active fUROsemide (LASIX) 20 mg Oral TabletIndications: Hypercholesteremia ,LBBB (left bundle branch block),Family history of sudden cardiac (SCD),Nonischemic cardiomyopathy (HCC),Chronic systolic CHF (congestive heart failure), NYHA class 3 (HCC),Implanted defibrillator electrode lead fracture, subsequent encounter,AICD (automatic cardioverter/defib rillator) present,S/P coronary angiogram TAKE 1 TAB BY MOUTH DAILY NEEDED (EDEMA WEIGHT GAIN AND SHORTNESS OF BREATH). 90 Tablet 3 4 Active docusate sodium (COLACE) 100 mg Oral Capsule Take 100 mg by mouth daily. Active carvediloL (COREG) 6.25 mg Oral TabletIndications: Chronic systolic CHF (congestive heart failure), NYHA class 3 (HCC),Hypercholest eremia,LBBB (left bundle branch block),Family history of sudden cardiac (SCD),Ischemic cardiomyopathy,AIC D (automatic cardioverter/defib rillator) present TAKE 1 TABLET BY MOUTH TWICE A DAY 180 Tablet 3 4 Active atorvastatin (LIPITOR) 20 mg Oral TabletIndications: Hypercholesteremia TAKE 1 TABLET BY MOUTH EVERY DAY AT NIGHT 100 Tablet 1 5 Active omeprazole (PRILOSEC) 20 mg Oral Capsule, Delayed Release(E.C.)Indic ations:Gastroesoph ageal reflux disease without esophagitis TAKE 1 CAPSULE BY MOUTH ONCE DAILY NEEDED. 90 Capsule 3 5 Active DULoxetine (CYMBALTA) 30 mg Oral Capsule, Delayed Release(E.C.)Indic ations:Generalized anxiety disorder TAKE 1 CAPSULE BY MOUTH EVERY DAY 30 Capsule 5 Active potassium chloride SA (KLOR-CON M) 10 mEq Oral Tab Sust.Rel. Particle/CrystalIn dications:Chronic systolic CHF (congestive heart failure), NYHA class 3 (HCC) TAKE 1 TABLET BY MOUTH EVERY DAY 90 Tablet 3 5 Active Active Problems Patient Care Coordination No te Formatting of this note migh t be different from the original. 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 Problem Noted Date Diagnosed Date S/P total hysterectomy 09/09/2022 Closed fracture of distal en d of femur, unspecified fracture morphology, initial encounter 03/25/2021 Dysarthria 01/28/2020 S/P patent foramen ovale closure 02/22/2019 Dysphagia 02/05/2018 AICD malfunction 07/07/2016 Chest pain 07/07/2016 GERD (gastroesophageal reflux disease) 5 AICD (automatic cardioverter/defibrillator) pres ent 02/04/2014 Overview (07/29/2014): 01/04 Successful implantation of Medtronic dual chamber automatic implantable cardiac defibrillator for SCD-HFT criteria Nonischemic cardiomyopathy 12/28/2013 Chronic systolic CHF (conges tive heart failure), NYHA class 3 12/28/2013 Family history of sudden cardiac (SCD) 08/2013 S/P coronary angiogram 07/02/2013 Overview (07/02/2013): [facility] 2004 normal cors LBBB (left bundle branch block) 07/02/2013 Hypercholesteremia 06/06/2013 Inappropriate shocks from IC D (implantable cardioverter-defibrillator) Implanted defibrillator electrode lead fracture Resolved Problems Problem Noted Date Diagnosed Date Resolved Date Fracture 03/26/2021 03/26/2021 Syncope and collapse 11/25/2018 022 Hypokalemia 11/25/2018 04/13/2021 Abnormal weight loss 11/25/2018 022 Family hx of colon cancer 11/28/2015 S/P coronary angiogram 08/13/201307/08 Overview (10/01/2013): 07/30/13 1. Left main angiographically normal. 2. LAD and diagonal branches angiographically normal. 3. Significant ramus branch angiographically normal. 4. Circumflex appears dominant for posterior circulation, terminating in a PDA. Several significant OM branches appear angiographically normal. 5. Right coronary artery is recessive, nondominant. RCA small caliber vessel and appears angiographically normal. 6. LV systolic function demonstrates an EF of 20%, appears to be globally hypokinetic. There is no mitral regurgitation. LVEDP is 5 mmHg. CONCLUSIONS: 1. Nonischemic cardiomyopathy with global hypokinesis, EF (ejection fraction) of 20%. 2. Angiographically normal coronary arteries. 3. Normal filling pressures CAD (coronary artery disease) 07/17/2013 07/17/2013 Chest pressure 07/02/2013 07/08/2016 Encounters Date Type Department Care Team Description 07/16/2024 Refill SEP [facility]&V [address] [phone] Berny Daley MD Medication Refill from Last 3 Months Immunizations Immunization Administration Dates Next Due Influenza Vaccine Quadrivalent 12/17/2016,2015 Influenza Vaccine Quadrivale nt Mdck Cell Derived 12/29/2019 Influenza Vaccine Quadrivalent PF 01/18/2023,,02/05/2018 Influenza Vaccine, Unspecified Formulation 12/28 Influenza Virus Vaccine Quad rivalant, Flublok 11/24/2021,02/22/2019 Moderna SARS-CoV-2 Bivalent Booster Vaccine 12+ Years (Handy Border) 11/24/2021 Pneumococcal Conjugate Vaccine 13 Valent 016 Pneumococcal Polysaccharide 23 Valent 12/17/2016 Tdap 02/24/2018 Surgical History Surgery Date Site/Laterality Comments TUBAL LIGATION HYSTERECTOMY Bilateral ARM DEBRIDEMENT left arm 2008 after dog bite CHOLECYSTECTOMY CARDIAC DEFIBRILLATOR PLACEMENT 07/08/2016 Left RV lead laser extraction, new RV lead by Dr. Vazquez CARDIAC DEFIBRILLATOR PLACEMENT 12/22/2013 - 01/20/2014 Left Medtronic, dual chamber ICD by Dr. Daley THORACOTOMY 07/09/2016 Chest/Left EPICARDIAL LEAD PLACEMENT LEFT VENTRICLE WITH LEFT ANTERIOR THORACOTOMY, DEFIBRILLATOR PLACEMENT ; Surgeon: Fan Burnett MD; Location: [facility]; Service: Open Heart Medical devices from this surgery are in the Medical Devices section. CARDIAC DEFIBRILLATOR PLACEMENT 07/09/2016 Surgeon: Fan Burnett MD; Location: [facility]; Service: Open Heart Medical devices from this surgery are in the Medical Devices section. CARDIAC DEFIBRILLATOR PLACEMENT 07/08/2016 FEMUR FRACTURE SURGERY 03/26/2021 Right OPEN REDUCTION INTERNAL FIXATION RIGHT FEMUR; Surgeon: Kevin Roberts MD; Location: [facility]; Service: Orthopedics Medical devices from this surgery are in the Medical Devices section. Medical History Medical History Date Comments Hypertension Cancer (HCC) cervical Depression was treated in for depression Asthma as a child Heart murmur Hyperlipidemia Heartburn Irritable bowel syndrome GERD (gastroesophageal reflux disease) 5 Urinary tract infection Nonischemic cardiomyopathy (HCC) CHF (congestive heart failure) (HCC) CVA (cerebral vascular accident) (HCC) Family History Medical History Relation Name Comments Stroke Maternal Grandmother High Blood Pressure Mother Heart Disease Paternal Grandfather Relation Name Status Comments Maternal Grandmother Mother Paternal Grandfather Social History Tobacco Use Types Packs/Day Years [...] Date Recorded PHQ-2 Total Score 0 11/24/2021 [facility] of Occupat ional Health - Occupational Stress Questionnaire Answer Date Recorded [...] on file Sexual Orientation Not on file Obstetrics History Last Filed Vital Signs Vital Sign Reading Time Taken Comments Blood Pressure 130/78 04/12/2024 10:44 AM EST Pulse 60 04/12/2024 10:44 AM EST Temperature 36.8 C (98.2 F) 09/30/2023 2:37 PM EDT Respiratory Rate 15 09/30/2023 6:00 PM EDT Oxygen Saturation 99% 09/30/2023 6:00 PM EDT Inhaled Oxygen Concentration - - Weight 64 kg (141 lb) 04/12/2024 10:44 AM EST Height 162.6 cm (5' 4 ) 04/12/2024 10:44 AM EST Body Mass Index 24.2 04/12/2024 10:44 AM EST Plan of Treatment Upcoming Encounters Date Type Department Care Team (Late st Contact Info) Description 10/11/2024 10:50 AM EDT Office Visit SEP H&V [address] [address] Berny Daley MD [address] [place] [phone] 10/11/2024 11:00 AM EDT Office Visit SEP H&V [address] [phone] Health Maintenance Due Date Last Done Comments Hepatitis B Vaccine (1 of 3 - 19+ 3-dose series) 1984 Colonoscopy 2010 Sigmoidoscopy 2010 Virtual Colonography 2010 Zoster (1 of 2) 2015 FIT 07/06/2018 07/06/2017 Pneumococcal Vaccine 50+ (3 of 3 - PCV20 or PCV21) 12/17/2021 12/17/2016, 11/28/2015 COVID-19 Vaccine ( - season) 2023 11/24/2021, 07/28/2020, 06/30/2020 Breast Cancer Screening 08/06/2024 08/07/19 23, 07/29/2020, 10/14/2017, Additional history exists Annual Wellness Exam 08/08/2024 08/09/2023, 03/25/2014 (Postponed) Influenza Vaccine (#1) 2024 3, 11/24/2021, 01/19/2021, Additional history exists Cologuard 07/05/2025 07/05/2022, 07/05/2022 Colon Cancer Screening 07/05/2025 DTaP/TDaP/Td (2 - Td or Tdap) 02/25/2028 02/24/2018 Meningococcal B Vaccine Aged Out No l onger eligible based on patient's age to complete this topic Goals Goal Patient Goal Type Associated Problems Recent Progress Patient-Stated? Author Blood Pressure < 140/90 Blood Pressure 130/78(2024 10:44 AM EST) No Jennifer Vargas RMA Maintain a healthy diet, exercise regularly and maintain an ideal body weight General No Jennifer Vargas RMA Stay Tobacco Free Lifestyle No Jennifer Vargas RMA Medical Devices Implanted Type Area Registry Np Device Identifier Shelf Expiration Date Model / Serial / Lot Quad - Claria Mri - [id number] - [id number] Implanted:Qty: 1 on 07/08/2016 by Sujit Vazquez MD at [facility] ICD MEDTRONIC [id number] / [id number] / Quad - Claria Mri - [id number] - [id number] Implanted:Qty: 1 on 07/09/2016 by Fan Burnett MD at [facility] ICD N/A: Heart-Pedro tricle MEDTRONIC 09/17/2017 [id number] / [id number] / Lead Tachyarrhythmia Implantable Sprint Quattro Secure 55cm - [id number] Implanted:Qty: 1 on 07/08/2016 by Sujit Vazquez MD at [facility] Lead N/A: Chest Wall MEDTRONIC:PACING SYS 6935M-55 / [id number] / Lead Pacing Implantable Capsurefix Novus 45cm Atrial/Ventric - [id number] Implanted:Qty: 1 on 01/10/2014 by Berny Daley MD at [facility] Left: Heart-Atr ium MEDTRONIC:PACING SYS 5076-45 / [id number] / Lead Pacing Implantable Capsure Epi 53cm - [id number] Implanted:Qty: 1 on 07/09/2016 by Fan Burnett MD at [facility] N/A: Heart-Pedro tricle MEDTRONIC:PACING SYS 12/25/2019 5071-53 / [id number] / Screw 5x80mm Lck Axsos 3 St Ti - [id number] Implanted:Qty: 2 on 03/26/2021 by Kevin Rboerts MD at [facility] Right: Femur BELL:ORTHOPED ICS [id number] / / Screw Cortex Ti 4.5mm X L28mm - [id number] Implanted:Qty: 1 on 03/26/2021 by Kevin Roberts MD at [facility] Right: Femur BELL:ORTHOPED ICS [id number] / / Screw 4.5x30mm Philip Axsos 3 St Ti - [id number] Implanted:Qty: 1 on 03/26/2021 by Kevin Roberts MD at [facility] Right: Femur BELL:ORTHOPED ICS [id number] / / Screw 4.5x32mm Philip Axsos 3 St Ti - [id number] Implanted:Qty: 1 on 03/26/2021 by Kevin Roberts MD at [facility] Right: Femur BELL:ORTHOPED ICS [id number] / / Screw 4.5x46mm Philip Axsos 3 St Ti - [id number] Implanted:Qty: 1 on 03/26/2021 by Kevin Roberts MD at [facility] Right: Femur BELL:ORTHOPED ICS 090060 / / Screw 4.5x50mm Philip Axsos 3 St Ti - [id number] Implanted:Qty: 2 on 03/26/2021 by Kevin Roberts MD at [facility] Right: Femur BELL:ORTHOPED ICS [id number] / / Cable 2mm Dall-Mil Troch Vital Bead Med Slv Ortho Strl - [id number] Implanted:Qty: 2 on 03/26/2021 by Kevin Roberts MD at [facility] Right: Femur BELL:ORTHOPED BANNER 01/25/2026 6704-0-52 0 / / [id number] Plate 343mm Ti 16 Hl Axsos 3 Bn Fem Rt Dist Lat Ns - [id number] Implanted:Qty: 1 on 03/26/2021 by Kevin Roberts MD at [facility] Right: Femur BELL:ORTHOPED ICS [id number] / / Screw 5x65mm Lck Axsos 3 St Ti - [id number] Implanted:Qty: 1 on 03/26/2021 by Kevin Roberts MD at [facility] Right: Femur BELL:ORTHOPED ICS [id number] / / Screw 5x70mm Lck Axsos 3 St Ti - [id number] Implanted:Qty: 1 on 03/26/2021 by Kevin Roberts MD at [facility] Right: Femur BELL:ORTHOPED ICS [id number] / / Screw 5x75mm Lck Axsos 3 St Ti - [id number] Implanted:Qty: 2 on 03/26/2021 by Kevin Roberts MD at [facility] Right: Femur BELL:ORTHOPED ICS [id number] / / Explanted Type Area Registry Np Device Identifier Shelf Expiration Date Model / Serial / Lot Lead Tachyarrhythmia Implantable Sprint Quattro Secure 55cm - [id number] Implanted:Qty: 1 on 01/10/2014 by Berny Daley MD at [facility] Explanted:Qty: 1 on 07/08/2016 by Sujit Vazquez MD at [facility] N/A: Heart-Pedro tricle MEDTRONIC:PACING SYS 6935M-55 / [id number] / Defribrillator Evera Xtdr Dual Chamber Icd - [id number] Implanted:Qty: 1 on 01/10/2014 by Berny Daley MD at [facility] Explanted:Qty: 1 on 07/08/2016 at [facility] Left: Chest Wall MEDTRONIC:PACING SYS [id number] / [id number] / Procedures Procedure Name Priority Date/Time Associated Diagnosis Comments MM MAMMO DIGITAL NUVIA SCREEN BILAT Routine 08/06/2022 4:09 PM EDT Encounter for screening mammogram for malignant neoplasm of breast COLOGUARD Routine 07/05/2022 2:30 AM EDT Screening for colon cancer FECAL HEME (FIT) CANCER SCREEN Routine 07/06/2017 11:08 AM EDT Encounter for screening colonoscopy from Last 3 Months or Most Recently Relevant to Health Maintenance Results * MM MAMMO DIGITAL NUVIA SCREEN BILAT (08/06/2022 4:09 PM EDT) Anatomical Region Laterality Modality Breast Bilateral Mammography 08/09/2022 7:27 AM EDT Impressions 08/09/2022 7:27 AM EDT Negative (DAY-Hrsbvlsy-2) ~ RECOMMENDATION: Routine screening mammogram in 1 year. ~ DISCLAIMER * Any patient with a palpable abnormality, unexplained by breast imaging, should be managed on clinical basis by the attending physician. * Breast imaging has a false negative rate of 15%. * The patient was notified by mail of the results of this examination. *The patient's information was entered into a reminder system with a target due date for the next mammogram, in accordance with the [employer] and the Society of Breast Imaging recommendations. Narrative 08/09/2022 7:27 AM EDT Procedure:MM MAMMO DIGITAL NUVIA SCREEN BILAT ~ Reason for exam: screening, asymptomatic. Z12.31-Encounter for screening mammogram for malignant neoplasm of sipepw-CER-12-CM ~ MM MAMMO DIGITAL NUVIA SCREEN BILAT Bilateral CC and MLO view(s) were taken. There are scattered fibroglandular densities. Prior study comparison: Compared with prior studies the most recent being 07/29/20, 10/14/17 No mammographic evidence of malignancy. ~ Procedure Note Celso Cruz III, MD - 08/09/2022 Procedure:MM MAMMO DIGITAL NUVIA SCREEN BILAT ~ Reason for exam: screening, asymptomatic. Z12.31-Encounter for screening mammogram for malignant neoplasm of glllbw-UCO-34-CM ~ MM MAMMO DIGITAL NUVIA SCREEN BILAT Bilateral CC and MLO view(s) were taken. There are scattered fibroglandular densities. Prior study comparison: Compared with prior studies the most recentbeing 07/29/20, 10/14/17 No mammographic evidence of malignancy. ~ IMPRESSION: Negative (OKT-Sfljdrvc-4) ~ RECOMMENDATION: Routine screening mammogram in 1 year. ~ DISCLAIMER * Any patient with a palpable abnormality, unexplained by breast imaging, should be managed on clinical basis by the attending physician. * Breast imaging has a false negative rate of 15%. * The patient was notified by mail of the results of this examination. *The patient's information was entered into a reminder system with atarget due date for the next mammogram, in accordance with the [employer] and the Society of Breast Imaging recommendations. Roselyn Melendez MD IM MAMMOGRAPHY ORDERABLES Fi nal Result * COLOGUARD (07/05/2022 2:30 AM EDT) COLOGUARD CLINICAL REPORT Negative Negative [employer] Comment: NEGATIVE TEST RESULT. A negative Cologuard result indicates a low likelihood that a colorectal cancer (CRC) or advanced adenoma (adenomatous polyps with more advanced pre-malignant features) is present. The chance that a person with a negative Cologuard test has a colorectal cancer is less than 1 in 1500 (negative predictive value >99.9%) or has an advanced adenoma is less than 5.3% (negative predictive value 94.7%). These data are based on a prospective cross-sectional study of 10,000 individuals at average risk for colorectal cancer who were screened with both Cologuard and colonoscopy. (Mehul Weber al, N Engl J Med 2014;370(14):8248-6181) The normal value (reference range) for this assay is negative. COLOGUARD RE-SCREENING RECOMMENDATION: Periodic colorectal cancer screening is an important part of preventive healthcare for asymptomatic individuals at average risk for colorectal cancer. Following a negative Cologuard result, the [place] [employer] Society and U.S. Multi-Society Task Force screening guidelines recommend a Cologuard re-screening interval of 3 years. References: [place] [employer] Guideline for Colorectal Cancer Screening: https://www.cancer.org/cancer/rmspp-hrnanb-zffbhf/qhcczbasw-oykujeozp-genxexs/ac s-rec ommendations.html.; Ian DK, Jose Carlos GALLEGOS, Roel BlancasK, Colorectal Cancer Screening: Recommendations for Physicians and Patients from the U.S. Multi-Society Task Force on Colorectal Cancer Screening , Am J Gastroenterology 2017; 112:9267-1071. TEST DESCRIPTION: Composite algorithmic analysis of stool DNA-biomarkers with hemoglobin immunoassay. Quantitative values of individual biomarkers are not reportable and are not associated with individual biomarker result reference ranges. Cologuard is intended for colorectal cancer screening of adults of either sex, 45 years or older, who are at average-risk for colorectal cancer (CRC). Cologuard has been approved for use by the U.S. FDA. The performance of Cologuard was established in a cross sectional study of average-risk adults aged 50-84. Cologuard performance in patients ages 45 to 49 years was estimated by sub-group analysis of near-age groups. Colonoscopies performed for a positive result may find as the most clinically significant lesion: colorectal cancer [4.0%], advanced adenoma (including sessile serrated polyps greater than or equal to 1cm diameter) [20%] or non- advanced adenoma [31%]; or no colorectal neoplasia [45%]. These estimates are derived from a prospective cross-sectional screening study of 10,000 individuals at average risk for colorectal cancer who were screened with both Cologuard and colonoscopy. (Mehul Darling, N Engl J Med 2014;370(14):7808-9202.) Cologuard may produce a false negative or false positive result (no colorectal cancer or precancerous polyp present at colonoscopy follow up). A negative Cologuard test result does not guarantee the absence of CRC or advanced adenoma (pre-cancer). The current Cologuard screening interval is every 3 years. ([place] [employer] Society and U.S. Multi-Society Task Force). Cologuard performance data in a 10,000 patient pivotal study using colonoscopy as the reference method can be accessed at the following location: www.Pandoodle.com/results. Additional description of the Cologuard test process, warnings and precautions can be found at www.cologuard.com. Stool 07/05/2022 2:30 AM EDT 07/08/2022 6:47 PM EDT us Roselyn Melendez MD EXACT SCIENCE - ORDERABLES Fi nal Result Performing Organization Address [facility] de Phone Number [employer], [address] [employer] [address] [place] [address] * FECAL HEME SCREEN (07/06/2017 11:08 AM EDT) Fecal Heme Scrn Negative Negative 07/06/2017 3:52 PM EDT [facility] Stool COLON STRUCTURE / Unknown 07/06/2017 11:08 AM EDT 07/06/2017 11:08 AM EDT Michael Kelly MD IMMUNOLOGY ORDERABLES Fin al Result Performing Organization Address [facility] Co de Phone Number [facility] [address] [phone] from Last 3 Months or Most Recently Relevant to Health Maintenance Insurance [facility] Advance Directives For more information, please contact: [phone] * Full Code (Latest Code Status on File) Date Activated Date Inactivated Comments 04/04/2021 7:24 AM 04/09/2021 4:40 PM * Full Code Date Activated Date Inactivated Comments 04/04/2021 7:23 AM 04/04/2021 7:24 AM * DNR Date Activated Date Inactivated Comments 11/25/2018 10:06 PM 11/27/2018 5:15 PM Discussed w ith Ms Bird She says DNR Does not have a living will Health care surrogate is her [place]-- goes by Familia-----Benita * Full Code Date Activated Date Inactivated Comments 02/05/2018 7:43 AM 02/07/2018 4:45 PM * Full Code Date Activated Date Inactivated Comments 07/07/2016 8:02 PM 07/13/2016 7:50 PM Care Teams Betting Agency Counter Clerk Relationship Specialty Start Date End Date Roselyn Melendez MD [address] [place] [phone] PCP - General Family Medicine 07/09/20 Berny Daley MD [address] [place] [address] Internal Medicine-Cardiovascular Disease 02/04/14 Sujit Vazquez MD [address] [place] [address] [place] [address] Consulting Physician Internal Medicine - Clinical Cardiac Electrophysiology 07/23/16
--- OUTSIDE RECORDS SUMMARY | 2024-09-08 19:33 | XMS_ITS | Encounter Summary ---
Author Organization [place] [address] Care Team Providers Care Signs And Displays Salesperson Name Role Phone Berny Daley MD Unavailable Sujit Vazquez MD Unavailable [phone] Roselyn Melendez MD Primary Care Provider [phone] Encounter Details Date Type Department Care Team (Late st Contact Info) Description 01/18/2022 Orders Only [facility] [address] [place] [address] Berny Daley MD [address] [place], [place] [address] Social History Tobacco Use Types Packs/Day Years [...] Date Recorded PHQ-2 Total Score 0 11/24/2021 [facility] - Occupational Stress Questionnaire Answer Date [...] Author No 04/09/2021 10:18 AM Дмитрий Bourgeois, HORTENCIA * Is the person blind or does [...] 04/09/2021 10:18 AM Дмитрий Bourgeois, RN * Because of a physical, mental or emotional condition, does this person have difficulty doing errands alone such as visiting a doctor's office or shopping? Answer Date of Assessment Author Yes 04/09/2021 10:18 AM Дмитрий Bourgeois, RN documented as of this encounter Mental Status * Because of a physical, mental or emotional condition, does this person have serious difficulty concentrating, remembering or making decisions? Answer Entry Date Author No 04/09/2021 10:18 AM Дмитрий Bourgeois, RN documented in this encounter Plan of Treatment Upcoming Encounters Date Type Department Care Team (Late st Contact Info) Description 10/11/2024 10:50 AM EDT Office Visit [facility] [address] [address] Berny Daley MD [address] [place] [address] 10/11/2024 11:00 AM EDT Office Visit [facility] [address] [id number] documented as of this encounter Goals Goal [...] Date/Time Associated Diagnosis Comments PACEART REPORT Routine 01/18/2022 9:54 PM EST documented in this encounter Results * PACEART REPORT (01/18/2022 9:54 PM EST) 01/18/2022 9:54 PM EST Berny Daley MD [facility] CARDIAC CATH ORDERABLE S Final Result [facility] [address] [place] [address] documented in this encounter Visit Diagnoses Not on filedocumented in this encounter Care Teams Signs And Displays Salesperson Relationship Specialty Start Date End Date Roselyn Melendez MD [address] [place] [id number] PCP - General Family Medicine 07/09/20 Berny Daley MD [address] [place] [address] Internal Medicine-Cardiovascular Disease 02/04/14 Sujit Vazquez MD [address] [place] [address] [place] [address] Consulting Physician Internal Medicine - Clinical Cardiac Electrophysiology 07/23/16 documented as of this encounter
--- OUTSIDE RECORDS SUMMARY | 2024-09-08 19:33 | XMS_ITS | Clinical Summary ---
Author Organization [facility] Address [address] [place] [address] Care Team Providers Care Cellular Phone Repairer Name Role Phone Luisito Blackwell MD Primary Care Provider [phone] Family History Medical History Relation Name Comments Colon cancer Other 1 sudden cardiac (SCD) Other 2 Relation Name Status Comments Other 1 Other 2 Social History Tobacco Use Types Packs/Day Years Used Date Smoking Tobacco: Never Alcohol Use Standard Drinks/Week Comments No 0 (1 standard drink = 0.6 oz pur e alcohol) Comments Unknown Sex and Gender Information Value Date Recorded Sex Assigned at Not on file Legal Sex Female 7:33 PM EDT Gender Identity Not on file Sexual Orientation Not on file Last Filed Vital Signs Vital Sign Reading Time Taken Comments Blood Pressure 126/65 04/18/2019 1:14 PM EST Pulse 73 04/18/2019 1:14 PM EST Temperature - - Respiratory Rate - - Oxygen Saturation - - Inhaled Oxygen Concentration - - Weight 56.7 kg (125 lb) 04/18/2019 1:14 PM EST Height 162.6 cm (5' 4 ) 03/14/2019 9:36 AM EST Body Mass Index 21.46 03/14/2019 9:36 AM EST Plan of Treatment Upcoming Encounters Date Type Department Care Team (Late st Contact Info) Description 01/29/2025 2:00 PM EST [facility] [place] [facility] [address] [place] [address] Balaji Parekh MD [address] [place] [address] Health Maintenance Due Date Last Done Comments [facility]-Depression Screening 1965 [facility]-/Child/Adol SDOH Screenings 1965 [facility]- SDOH Screenings 1983 [facility]-Adult SDOH Screenings 1983 [facility]-Hepatitis B Vaccines (1 of 3 - 19+ 3-dose series) 1984 [facility]-Pap Smear 1986 [facility]-Cervical Cancer Screening 1995 [facility]-HPV/Cotest 1995 CT Colonography 2010 Colonoscopy 2010 [facility]-DNA 2010 FIT 2010 FOBT 2010 Sigmoidoscopy 2010 [facility]-Colorectal Cancer Screening 2010 [facility]-Zoster Vaccines (1 of 2) 2015 [facility]-Pneumococcal Vaccine: 50+ Years (3 of 3 - PCV20 or PCV21) 12/17/2021 12/17/2016, 11/28/2015 ZMR-[id number] Vaccine (4 - season) 2023 11/24/2021, 07/28/2020, 06/30/2020 [facility]-Influenza Vaccine (#1) 10/22/202401/18, 11/24/2021, 01/19/2021, Additional history exists [facility]-DTaP,Tdap,and Td Vaccines (2 - Td or Tdap) 02/25/2028 02/24/2018 HPV Vaccines Aged Out No longer eligi ble based on patient's age to complete this topic [facility]-HIB Vaccines Aged Out No longer e ligible based on patient's age to complete this topic [facility]-Hepatitis A Vaccines Aged Out No longer eligible based on patient's age to complete this topic [facility]-IPV Vaccines Aged Out No longer e ligible based on patient's age to complete this topic [facility]-Rotavirus Vaccines Aged Out No lo nger eligible based on patient's age to complete this topic Care Teams Cellular Phone Repairer Relationship Specialty Start Date End Date Luisito Blackwell MD [facility] [address] [place] [place] [address] PCP - General 07/04/20
[2024-09-08 19:39] LABS: Hematocrit 42.8 % (37.0-47.0); Hemoglobin 13.9 g/dL (12.2-16.2); Immature Granulocytes % 0.2 %; Mean Corpuscular HGB Conc 32.5 g/dL (31.8-35.4); Mean Corpuscular Hemoglobin 28.4 pg (27.0-31.2); Mean Corpuscular Volume 87.5 fl (81-99); Nucleated Red Blood Cells % 0 %; Platelet Count 217 K/mm3 (142-424); Red Blood Count 4.89 M/mm3 (4.20-5.40); Red Cell Distribution Width-SD 44.3 fL; White Blood Count 6.6 K/mm3 (4.8-10.8)
[2024-09-08 19:46] LABS: Albumin Level 4.3 g/dl (3.5-5.0); Chloride 103 mmol/L (98-107); Sodium 138 mmol/L (136-145)
[2024-09-08 19:47] LABS: Potassium 3.9 mmoL/L (3.5-5.1)
[2024-09-08 19:49] LABS: Alanine Aminotransferase 37 U/L (12-78); Albumin/Globulin Ratio 1.4 (1.1-1.8); Alkaline Phosphatase 72 U/L (38-126); Anion Gap 9.9 mEq/L (5-15); Aspartate Amino Transferase 56 U/L (14-36); Bilirubin,Total 0.9 mg/dl (0.2-1.3); Blood Urea Nitrogen 20 mg/dl (7-17); Carbon Dioxide 29 mmol/L (22.0-30.0); Creatinine Clearance Estimated 94 mL/min (50-200); Creatinine,Serum 0.60 mg/dl (0.52-1.04); Estimated Glomerular Filt Rate 102 ml/min (>60); GFR (African American) 124 ML/MIN (>60); Globulin 3.0 g/dL (1.3-3.2); Total Protein,Serum 7.3 g/dl (6.3-8.2)
[2024-09-08 19:50] LABS: Calcium 9.3 mg/dl (8.4-10.2); Glucose 101 mg/dl (74-100); Magnesium 2.1 mg/dl (1.6-2.3)
[2024-09-08 19:59] LABS: NT Pro Brain Natriuretic Pep. 103 pg/mL (0-125)
[2024-09-08 20:01] LABS: Troponin I < 0.01 ng/ml (0.00-0.034)
[2024-09-08] MEDS: LIDOCAINE 1% 5ML PF VIAL 10 ML IJ (20:11)
[2024-09-08] MEDS: TET/DIPHTH/PERT-ADULT 0.5ML SYRINGE 0.5 ML IM (20:12)
--- NOTE | 2024-09-08 22:10 | PC.NURSE ---
Called [facility] regarding a transfer. stated they would call back
[2024-09-08 22:38] LABS: Troponin I < 0.01 ng/ml (0.00-0.034)
[2024-09-09 00:25] VITALS: BP 139/87; PULSE 69; RESP 17; TEMP 36.8; O2SAT 94
== END 2024-09-09 00:27 | disposition left against medical advice (07) ==
PROVIDERS: Physician Assistant; Emergency Provider Student in an Organized Health Care Education/Training Program; PCP Family Medicine
DX: S02.609A Fracture of mandible, unspecified, initial encounter for closed fracture (principal); M50.221 Other cervical disc displacement at C4-C5 level; G95.29 Other cord compression; S01.81XA Laceration without foreign body of other part of head, initial encounter; W18.30XA Fall on same level, unspecified, initial encounter; Z23 Encounter for immunization
CPT/HCPCS: 12011; 70450; 70486; 71045; 72125; 72170; 73030; 73562; 80053; 83735; 83880; 84484; 85025; 90471; 90715; 93005; 99285; J2003